=== PATIENT | male | born 1990 | race African-American/Black ===

== ENCOUNTER 2025-01-23 21:47 | Emergency (ER) | payer BC ==
[2025-01-23] MEDS ORDERED: Oseltamivir 75 MG CAP ONE (22:49)
== END 2025-01-23 22:53 | disposition home or self-care (01) ==
LOC: ERS 21:47
DX: J11.1 Influenza due to unidentified influenza virus with other respiratory manifestations (principal)
CPT/HCPCS: 87428; 99283